=== PATIENT | female | born 1970 | race Caucasian/White ===

== ENCOUNTER 2021-09-17 09:52 | Outpatient (AMBR) | payer MEDICAID, SELFPAY ==
--- NOTE | 2021-09-02 09:26 | PT.OIERPT ---
PT OP Initial Eval Patient Information Visit Reasons: RIGHT HIP PAIN Medical Diagnosis: M25.551 Treatment Dx #1: R hip pain Start of Care: 09/02/21 Date of Onset: April 2021 Initial Assessment Subjective Pt is 51 yr old female who reports she was doing HH chores in April and felt a pop and felt pain in the R hip groin and lateral hip region that hasn't gone away since. She has long Hx of LBP. She got an injection in the R hip in June which has allowed her to walk and have much less pain. 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 Pt has painfree trunk ROM that doesn't affect hip pain and ssx don't seem to be referred from L/S. The pain is localized and she felt immediate relief of ssx with hip aspiration/injection into inguinal region that continues until the present. PT recommends further imaging of the R hip joint if ssx don't improve. Pt requires skilled therapy in order to decrease pain and improve ROM and has fair rehab potential. Short Term and Pocket Setter Goals 1. Ind with HEP 2. Improved R SLR to at least 50 deg 3. Improved hip IR to at least 12 deg 4. Pt will ambulate her normal distances with symmetrical pattern not limited by hip pain Treatment Plan 1. Manual therapy 2. Therex 3. Modalities as indicated, moist heat, ice, estim ? Frequency and Duration 2x a week for 6 weeks Certification Dates: 09/02/21 to 12/01/21 Office Procedures PT Treatments PT Date of Service: 09/02/21 OP PT Eval Mod Complex 30 minutes: Yes
--- NOTE | 2021-09-08 14:31 | PT.ODAYNRPT ---
PT Outpatient Daily Note Date of Service: 09/08/21 OP Daily Note Visit Reasons: RIGHT HIP PAIN Outpatient Physical Therapy Treatment Date: 09/08/21 Subjective: Same as time of evaluation Objective: See F/S for therex Assessment: Moderate tissue irritability of R hip with therex today on total gym and with step ups. Plan: Continue per POC Office Procedures PT Treatments PT Date of Service: 09/08/21 Therapeutic Exercise 30 minutes: Yes PT Treatments PT Date of Service: 09/02/21 OP PT Eval Mod Complex 30 minutes: Yes
--- NOTE | 2021-09-11 16:38 | PT.ODAYNRPT ---
PT Outpatient Daily Note Date of Service: 09/11/2021 OP Daily Note Visit Reasons: RIGHT HIP PAIN Outpatient Physical Therapy Treatment Date: 09/11/21 Subjective: pt has hip pain upon visit, Objective: see flow sheet. Assessment: noted pt has antalgic gait due to her R hip pain. pt has difficulty with side steps due to pain but she did better with the monster walks. both exercises with no resistance. she completed all exercises with discomfort. added hot pack while she is on sidelying to her R hip post ther ex. Plan: continue POC per PT. Length of Time (minutes) of Treatment: 30 Minutes Office Procedures PT Treatments PT Date of Service: 09/08/21 Therapeutic Exercise 30 minutes: Yes PT Treatments PT Date of Service: 09/02/21 OP PT Eval Mod Complex 30 minutes: Yes PT Treatments PT Date of Service: 09/11/21 Therapeutic Exercise 30 minutes: Yes
--- NOTE | 2021-09-14 15:10 | PT.ODAYNRPT ---
PT Outpatient Daily Note Date of Service: 09/14/21 OP Daily Note Visit Reasons: RIGHT HIP PAIN Outpatient Physical Therapy Treatment Date: 09/14/21 Subjective: Pt reports she had a shot for her pain so she feels some pressure to R hip. Objective: See flow chart for therex. Assessment: Pt tolerated therex fair w/ complaints of pain but she wants to push through the pain. Performed stretches to R hip to help decrease pain and improve ROM. TTP inferior to R hip greater trochanter. Muscle tension to IT band. Pt feels a lot of pain when palpating the area. Pt presents antalgic gait prior and end of session. Pt tolerated Post Ice pack well. Plan: Cont POC per PT. Length of Time (minutes) of Treatment: 30 Minutes Office Procedures PT Treatments PT Date of Service: 09/08/21 Therapeutic Exercise 30 minutes: Yes PT Treatments PT Date of Service: 09/14/21 Therapeutic Exercise 30 minutes: Yes PT Treatments PT Date of Service: 09/02/21 OP PT Eval Mod Complex 30 minutes: Yes PT Treatments PT Date of Service: 09/11/21 Therapeutic Exercise 30 minutes: Yes
--- NOTE | 2021-09-17 12:07 | PT.ODAYNRPT ---
PT Outpatient Daily Note Date of Service: 09/17/21 OP Daily Note Visit Reasons: RIGHT HIP PAIN Outpatient Physical Therapy Treatment Date: 09/17/21 Subjective: Pt reports R hip feeling better today and is motivated for therapy. Pt reports the stretches help her with mobility. Objective: See flow chart for therex. MT: STM w/ graston to IT band x 10mins. Assessment: Pt ambulated today w/ less antalgic gait from previous visit. Pt tolerated stretches well w/ minimal complaints of pain. Pt tolerated MT and post ice pack well w/ reduced pain. Minimal tissue irritability to IT band. Plan: Cont POC per PT. 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
== END 2021-09-20 23:59 | disposition home or self-care (01) ==
PROVIDERS: PCP Nurse Practitioner Family; Referring Provider Nurse Practitioner Family; Visit Provider Nurse Practitioner Family
DX: M25.551 Pain in right hip (principal); M54.50 Low back pain, unspecified; M47.817 Spondylosis without myelopathy or radiculopathy, lumbosacral region; F17.200 Nicotine dependence, unspecified, uncomplicated
CPT/HCPCS: 97110; 97140; 97162

== ENCOUNTER 2021-11-17 14:01 | Outpatient (AMBR) | payer MEDICAID, SELFPAY ==
--- NOTE | 2021-10-26 14:42 | PTNOTE_ITS ---
PT Outpatient Daily Note Date of Service: 10/26/21 OP Daily Note Visit Reasons: RIGHT HIP PAIN Outpatient Physical Therapy Treatment Date: 10/26/21 Subjective: Overall improved ROM in the R hip since starting therapy. Variable pain level but manual therapy hip distraction gives her pain relief for a couple hours. Objective: See F/S for therex MT: long axis hip distraction with strap x7' Assessment: Improved hip abduction AROM since starting therapy. Good response to hip distraction. Plan: Continue per POC Length of Time (minutes) of Treatment: 30 Minutes Office Procedures PT Treatments PT Date of Service: 10/26/21 Therapeutic Exercise 30 minutes: Yes
--- NOTE | 2021-10-28 18:09 | PT.ODAYNRPT ---
PT Outpatient Daily Note Date of Service: 10/28/21 OP Daily Note Visit Reasons: RIGHT HIP PAIN Outpatient Physical Therapy Treatment Date: 10/28/21 Subjective: Pt reports temporary relief after therapy visits.She has to leave 5 mins early from therapy today. Objective: See F/S for therex Assessment: Temporary relief of R hip pain after therapy visits. Difficulty with lateral stepping and hip abduction. Plan: Continue per POC Length of Time (minutes) of Treatment: 25 Minutes Office Procedures PT Treatments PT Date of Service: 10/28/21 Therapeutic Exercise 30 minutes: Yes
--- NOTE | 2021-11-02 15:35 | PT.ODAYNRPT ---
PT Outpatient Daily Note Date of Service: 11/02/2021 OP Daily Note Visit Reasons: RIGHT HIP PAIN Outpatient Physical Therapy Treatment Date: 11/02/21 Subjective: pt came in with no pain of the hip upon visit. Objective: see flow sheet. Assessment: noted pt was touching her R hip during ther ex due to the exercise causing muscle fatigue. for lunges on step she does alternate BLE so one can be stretched and other is being active. the side steps exercise seems to the one to be bothering her hip but she still completed the laps. chair at reach for resting if needed. Plan: continue POC per PT. Length of Time (minutes) of Treatment: 30 Minutes Office Procedures PT Treatments PT Date of Service: 10/28/21 Therapeutic Exercise 30 minutes: Yes
--- NOTE | 2021-11-04 14:57 | PT.ODAYNRPT ---
PT Outpatient Daily Note Date of Service: 11/04/21 OP Daily Note Visit Reasons: RIGHT HIP PAIN Outpatient Physical Therapy Treatment Date: 11/04/21 Subjective: Pt reports temporary relief after therapy visits and improved ROM into abduction. Objective: See F/S for therex Assessment: Temporary relief of R hip pain after therapy visits. Difficulty with lateral stepping and hip abduction. Plan: Continue per POC Length of Time (minutes) of Treatment: 30 Minutes Office Procedures PT Treatments PT Date of Service: 10/28/21 Therapeutic Exercise 30 minutes: Yes PT Treatments PT Date of Service: 11/02/21 Therapeutic Exercise 30 minutes: Yes PT Treatments PT Date of Service: 11/04/21 Therapeutic Exercise 30 minutes: Yes
--- NOTE | 2021-11-17 14:54 | PTNOTE_ITS ---
PT OP Progress/Discharge Note Date of Service: 11/17/21 Progress Note/DC Note Progress Note/Discharge Note: DC Note Patient Information Visit Reasons: RIGHT HIP PAIN Service Continue Service or Discharge: Discharge Discharge Date: 11/17/21 Status Subjective: Pt reports temporary relief after therapy visits and improved ROM into abduction. 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 Objective: R hip AROM: Flexion: 95 deg Abd: 40 deg SLR: 40 deg IRot: 10 deg with pain Strength: Flexion: 4-/5 with hip joint pain Assessment: Pt has attended 11/01 Rx visits with temporary relief of R hip pain after therapy visits and improved R hip abduction AROM. Pt has continued pain into IR and Erot at end range consistent with degenerative changes. Pt has difficulty with lateral stepping and hip abduction. Progress with goals has plateaued. Plan: D/C with HEP. Office Procedures PT Treatments PT Date of Service: 10/28/21 Therapeutic Exercise 30 minutes: Yes PT Treatments PT Date of Service: 11/02/21 Therapeutic Exercise 30 minutes: Yes PT Treatments PT Date of Service: 11/04/21 Therapeutic Exercise 30 minutes: Yes PT Treatments PT Date of Service: 11/17/21 Therapeutic Exercise 30 minutes: Yes
== END 2021-11-20 23:59 | disposition home or self-care (01) ==
PROVIDERS: PCP Orthopaedic Surgery; Referring Provider Orthopaedic Surgery; Visit Provider Orthopaedic Surgery
DX: M51.36 Other intervertebral disc degeneration, lumbar region (principal); M25.551 Pain in right hip
CPT/HCPCS: 97110

== ENCOUNTER 2024-10-11 11:36 | Emergency (ER) | payer MEDICAID, SELFPAY ==
--- NOTE | 2024-10-11 11:52 | EKG_ITS ---
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
[2024-10-11 11:55] VITALS: BP 136/81; PULSE 59; RESP 17; TEMP 36.4; O2SAT 99; BMI 34.6
--- NOTE | 2024-10-11 11:55 | XR_ITS ---
Examination: CT brain head without contrast. 2-D sagittal coronal reconstructions Date and time of exam:October 11, 2024 1212 hours INDICATIONS: Dizziness episodes beginning 2 days ago, history CVA posterior right temporal parietal lobe COMPARISON: September 13, 2018 CTDI: vol (mGy):20.2 DLP: (mGycm):1001 Technique: Multiple CT axial sections of the brain have been obtained, 5 mm slice thickness. Contrast has not been administered. 2-D sagittal, coronal reconstructions have been obtained Low dose protocols were performed. One or more of the following dose reduction techniques were used; automated exposure control, adjustment of the mA and/or KV according to patient size, use of iterative reconstruction technique. Findings: No significant ventricular enlargement. Encephalomalacia posterior right temporal parietal lobe Intra-axial or extra-axial hemorrhage density is not seen. No mass effect or midline shift Basal cisterns are not remarkable. Fourth ventricle is midline. Cranial vault intact. Impression: Negative for acute hemorrhage, mass effect or midline shift Advise clinical correlation follow-up accordingly
--- NOTE | 2024-10-11 11:55 | XR_ITS ---
Examination: PA lateral chest 2 views TECHNIQUE: Upright PA lateral chest 2 views Exam date and time: October 11, 2024 1305 hours Comparison June 14, 2024 INDICATIONS: Onset chest pain today. FINDINGS: Normal heart size. Lungs are clear. The osseous structures are intact IMPRESSION: No active disease
--- NOTE | 2024-10-11 11:57 | PD.EDRME ---
Rapid Medical Screening Exam RME Arrival date/time: 10/11/24 11:36 54-year-old female presents emergency department today saying she feels lightheaded Chief Complaint: Dizziness Time Seen by Provider: 10/11/24 11:48 Vital signs: Vital Signs Temperature 97.6 F 10/11/24 11:55 Pulse Rate 59 L 10/11/24 11:55 Respiratory Rate 17 10/11/24 11:55 Blood Pressure 136/81 H 10/11/24 11:55 Pulse Oximetry (%) 99 10/11/24 11:55 Oxygen Delivery Method Room Air 10/11/24 11:55
[2024-10-11 12:08] LABS: Collection Type, Urine Clean Catch
[2024-10-11 12:22] LABS: HCG Qualitative,Urine Negative
[2024-10-11 12:25] LABS: Bacteria,Urine 4+; Bilirubin,Urine Negative (Negative); Blood,Urine Negative (Negative); Clarity,Urine Clear (Clear/Hazy); Color,Urine Colorless (Lt Yel-Yel); Glucose, Urine Negative (Negative); Ketones,Urine Negative (Negative); Leukocyte Esterase,Urine Negative (Negative); Nitrite,Urine Negative (Negative); PH,Urine 6.5 (5.0-7.0); Protein,Urine Negative (Neg - Trace); RBC,Urine < 1 /hpf (0-3); Specific Gravity,Urine 1.005 (1.001-1.035); Squamous Epithelial Cell,Urine 3 /hpf (0-5); Urobilinogen,Urine Negative mg/dL (0.0-1.0); WBC,Urine < 1 /hpf (0-5)
[2024-10-11 12:28] LABS: Amphetamine/Methamp Scrn,U Negative (Negative); Barbiturate Screen,Urine Negative (Negative); Benzodiazepines Screen,Urine Negative (Negative); Benzoylecgonine Screen, Ur Negative (Negative); Fentanyl Screen,Urine Negative (Negative); Opiate Screen,Urine Negative (Negative); THC Screen,Urine Negative (Negative)
[2024-10-11 12:38] LABS: Basophils # (Auto) 0.1 Thou/mm3 (0.0-0.2); Basophils % (Auto) 1 % (0-2.5); Eosinophils # (Auto) 0.2 Thou/mm3 (0.0-0.5); Eosinophils % (Auto) 2 % (0-10); Hematocrit 44.6 % (36.0-46.0); Hemoglobin 14.9 g/dL (12.0-16.0); Immature Granulocytes % (Auto) 0 % (0-0); Immature Granulocytes Auto 0.02 Thou/mm3 (0.00-0.00); Lymphocytes # (Auto) 2.4 Thou/mm3 (1.0-4.8); Lymphocytes % (Auto) 25 % (10-50); Mean Corpuscular HGB Conc 33.4 g/dl (31.0-37.0); Mean Corpuscular Hemoglobin 30.8 pg (25.0-35.0); Mean Corpuscular Volume 92 fL (80-100); Monocytes # (Auto) 0.4 Thou/mm3 (0.0-0.8); Monocytes % (Auto) 5 % (0-12); Neutrophils # (Auto) 6.4 Thou/mm3 (1.8-7.7); Neutrophils % (Auto) 67 % (37-80); Nucleated Red Blood Cell % 0 /100 WBC (0); Platelet Count 224 Thou/mm3 (140-440); RDW Standard Deviation 42.6 fL (36.4-46.3); Red Blood Count 4.83 Miln/mm3 (4.00-5.20); White Blood Count 9.6 Thou/mm3 (3.6-11.0)
[2024-10-11 12:53] LABS: Partial Thromboplastin Time 25.1 Seconds (22.0-36.0); Prothrombin Time 10.7 Seconds (9.0-12.2)
[2024-10-11 12:55] LABS: B-Type Natriuretic Peptide 70 pg/mL (0-100)
[2024-10-11 12:57] LABS: Alanine Aminotransferase 13 U/L (10-49); Albumin, Serum 4.5 gm/dL (3.5-5.0); Alkaline Phosphatase 64 U/L (46-116); Anion Gap 3 (7-16); Aspartate Amino Transferase 13 U/L (0-34); BUN/Creatinine Ratio 16 Ratio (12-20); Bilirubin,Total 0.5 mg/dL (0.3-1.2); Blood Urea Nitrogen 14 mg/dL (9-23); Calcium 10.1 mg/dL (8.3-10.6); Calcium (Corrected) 10.1 mg/dL (8.5-10.1); Carbon Dioxide 28.6 mMol/L (20.0-31.0); Chloride 109 mMol/L (98-107); Creatinine (Component) 0.9 mg/dL (0.6-1.3); Estimated Creatinine Clearance 88.9 mL/min (>60); Globulin 2.3 gm/dL (2.3-3.5); Glucose 138 mg/dL (74-106); Magnesium 1.9 mg/dL (1.6-2.6); Osmolality,Calculated 283 (275-295); Potassium 4.7 mMol/L (3.4-5.1); Sodium 141 mMol/L (136-145); Total Protein 6.8 gm/dL (5.7-8.2); Troponin I < 0.020 ng/mL (0.0-0.045); eGFR > 60 See Note
[2024-10-11 13:09] VITALS: BP 158/68; PULSE 52; RESP 16; TEMP 36.4; O2SAT 97
--- NOTE | 2024-10-11 13:20 | PC.NURSE ---
Pt coming in from ED lobby with c/o dizziness x2 days; pt states, I feel like I'm drunk; the world is spinning. I just woke up with it when it happened 2 days ago. Pt connected to monitor at this time.
[2024-10-11 13:26] VITALS: PULSE 55
--- NOTE | 2024-10-11 13:36 | PD.EDDIZZY ---
ED Dizzyness RME/HPI General Chief Complaint: Dizziness Stated Complaint: Dizzy X 2 days Time Seen by Provider: 10/11/24 11:48 Arrival date/time: 10/11/24 11:36 RME / HPI RME / HPI Narrative: 54-year-old female patient with significant history of CVA in the past, currently on Plavix, and aspirin was brought in by family for evaluation regarding lightheadedness and dizziness. Onset of symptoms for the last 2 days, severity of symptoms mild. Patient denies any headache. Denies any chest pain denies any neck pain. Patient is ambulatory unaided. Denies any fever denies any trauma or fall. No medication was taken prior travel. Related Data Home Medications ?Medication ?Instructions ?Recorded ?Confirmed clopidogrel 75 mg tablet (Plavix) 75 mg PO QDAY #0 tabs 07/31/14 05/19/20 ranitidine HCl 150 mg tablet 1 tab PO BID ##60 08/06/17 05/19/20 simvastatin 20 mg tablet 1 tab PO QDAY ##30 08/06/17 05/19/20 aspirin 81 mg tablet,delayed 81 mg PO QDAY 03/29/18 05/19/20 release (Aspir-) Previous Rx's ?Medication ?Instructions ?Recorded albuterol sulfate 90 mcg/actuation 2 puff inhalation QID PRN 05/19/20 aerosol inhaler shortness of breath or wheezing #18 grams cetirizine 10 mg tablet (Zyrtec) 10 mg PO QDAY #30 tabs 05/19/20 sodium chloride 0.65 % nasal spray 2 spray intranasal QID #60 mL 05/19/20 aerosol (Saline Nasal) famotidine 40 mg tablet (Pepcid) 40 mg PO QDAY #30 tabs 06/23/24 hydrocodone 5 mg-acetaminophen 325 1 tab PO Q6H PRN pain #10 tabs 06/23/24 mg tablet ondansetron 4 mg disintegrating 4 mg PO Q6H PRN nausea and 06/23/24 tablet vomiting #10 tabs meclizine 25 mg tablet 25 mg PO BID PRN dizziness #20 tabs 10/11/24 Allergies Allergy/AdvReac Type Severity Reaction Status Date / Time No Known Allergies Allergy Verified 05/18/20 22:59 Review of Systems Review of Systems Narrative Review of Systems: Review of system reviewed and within normal limits except mentioned in HPI ED Exam Narrative Physical exam: VITAL SIGNS: Reviewed. GENERAL APPEARANCE: Alert and interactive, follows commands, no acute distress, HEAD AND FACE: Non-traumatic. ENT: PERRL, pink conjunctivitis, eyelid no trauma, Mucous membrane moist. NECK: Supple, nontender, no nuchal rigidity. CHEST: No tenderness, no crepitus, no paradoxical movement, no retractions. LUNGS: Clear, well ventilated, symmetric, no rales, no wheezing, no ronchi, no stridor, good breath sounds bilaterally. HEART: Regular rate, regular rhythm, no murmur, no gallops. ABDOMEN: Soft, positive bowel sounds, nondistended, no guarding, nontender, no rebound, no masses, RECTAL: Deferred. GENITAL: Deferred. NEUROLOGICAL: Gross motor function intact sensory function intact, Appropriate for age. MUSCULOSKELETAL: low back nontender, full range of motion. EXTREMITIES: Nontender, full range of motion. SKIN: Color pink, dry, no rash, no lacerations, no abrasions, no contusions. LYMPHATICS: Deferred. Course Quality Measures none Orders Category Date Time Status EKG (ED ONLY) *Do not use* NOW Care 10/11/24 11:[address] head/brain wo con Stat Exams 10/11/24 11:55 Completed EKG (ED Only) Stat Exams 10/11/24 11:52 Draft XR chest 2V Stat Exams 10/11/24 11:55 Taken B-Type Natriuretic Peptide Stat Lab 10/11/24 12:29 Completed CBC Stat Lab 10/11/24 12:29 Completed Comprehensive Metabolic Panel Stat Lab 10/11/24 12:29 Completed Drug Screen,Urine Stat Lab 10/11/24 12:03 Completed HCG Qualitative,Urine Stat Lab 10/11/24 12:03 Completed Magnesium Stat Lab 10/11/24 12:29 Completed Partial Thromboplastin Time Stat Lab 10/11/24 12:29 Completed Prothrombin Time with INR Stat Lab 10/11/24 12:29 Completed Troponin I Stat Lab 10/11/24 12:29 Completed Urinalysis Stat Lab 10/11/24 12:03 Completed Meclizine HCl [Antivert] Med 10/11/24 13:36 Once 50 mg PO X1 ONE Vital Signs Vital signs: Vital Signs Temperature 97.6 F 10/11/24 11:55 Pulse Rate 59 L 10/11/24 11:55 Respiratory Rate 17 10/11/24 11:55 Blood Pressure 136/81 H 10/11/24 11:55 Pulse Oximetry (%) 99 10/11/24 11:55 Oxygen Delivery Method Room Air 10/11/24 11:55 Dizziness MDM Narrative MDM Narrative:: 54-year-old female patient with significant history of CVA in the past, currently on Plavix, and aspirin was brought in by family for evaluation regarding lightheadedness and dizziness. Onset of symptoms for the last 2 days, severity of symptoms mild. Patient denies any headache. Denies any chest pain denies any neck pain. Patient is ambulatory unaided. Denies any fever denies any trauma or fall. No medication was taken prior travel. Patient's workup today all came back unremarkable including normal CT scan of the head. Patient was given meclizine with significant improvement of symptoms. Results discussed with the patient. Patient was noted to be ambulatory unaided Patient data External records reviewed:: None Clinical information provided by:: none Social determinants that could affect healthcare access:: none Patient has the following chronic illnesses:: History of CVA in the past, How is presenting disease/condition affected by chronic disease/condition?: uneffected by Evaluation data The following diagnostics were reviewed and interpreted by me:: lab results, radiology exam(s) and EKG tracing(s) Lab and/or radiology exams considered but not ordered:: None Interpretation Summary: EKG as interpreted by me showed sinus bradycardia, ventricular rate 51 bpm, no ST segment elevation or depression noted. Laboratory workup all came back unremarkable urinalysis no UTI. CT scan of the head came back unremarkable. Medications / Prescriptions Medications or Prescriptions considered but not ordered:: None Medication administrations:: meclizine Consultations Consultation(s) initiated? (list below): No Diagnosis Dizziness Differential Diagnosis: benign paroxysmal positional vertigo, cerebrovascular accident and other (Dizziness) Most likely diagnosis given after review of the tests above:: Dizziness Admission Indicated Admission indicated?: not indicated Admission Request Was there a request for admission?: No Disposition Plan Disposition Plan: Discharge Discharge Attestation Discharge Attestation: The patient was given an opportunity to ask questions and understood the discharge instructions. Discharge instructions specifically effects, indications for sooner follow up or return to the emergency department, and the expected course of current diagnosis. Patient condition: Stable Discharge Plan Plan Patient Disposition: HOME (Self Care) Disposition Comment: Stable Prescriptions/Referrals Prescriptions/Med Rec: New meclizine 25 mg tablet 25 mg PO BID PRN (Reason: dizziness) Qty: 20 0RF No Action clopidogrel [Plavix] 75 MG tablet 75 mg PO QDAY Qty: 0 simvastatin 20 MG tablet 1 tab PO QDAY Qty: 30 ranitidine HCl 150 MG tablet 1 tab PO BID Qty: 60 aspirin [Aspir-81] 81 mg Tablet,Delayed Release (Dr/Ec) 81 mg PO QDAY albuterol sulfate 90 mcg/actuation HFA aerosol inhaler 2 puff IH QID PRN (Reason: shortness of breath or wheezing) Qty: 18 0RF cetirizine [Zyrtec] 10 mg tablet 10 mg PO QDAY Qty: 30 0RF sodium chloride [Saline Nasal] 0.65 % aerosol,spray 2 spray INTRANASAL QID Qty: 60 0RF famotidine [Pepcid] 40 mg tablet 40 mg PO QDAY Qty: 30 0RF ondansetron 4 mg tablet,disintegrating 4 mg PO Q6H PRN (Reason: nausea and vomiting) Qty: 10 0RF hydrocodone-acetaminophen 5-325 mg tablet 1 tab PO Q6H MDD 3 PRN (Reason: pain) Qty: 10 0RF Referrals: Apurva Barnett FNP [Primary Care Provider] - In 1 week Problem List Clinical Impression: Dizziness Patient/Caregiver Discharge Instructions Discharge Activity: activity as tolerated Education Materials: Dizziness Fainting Poss Causes Additional Instructions: Thank you for the opportunity for serving you today. You are stable for discharged . You are advised to: Follow-up with your PCP in 1 to 2 days Return to ED for worsening of symptoms Increase oral fluids Take medication as prescribed Print Language: Greek Stand Alone Forms: Anu Award Info., Patient Portal Info Letter KALYAN/TAMI Supervising Physician KALYAN/TAMI Supervising Physician: MD Deyanira
[2024-10-11] MEDS: MECLIZINE HCL 25 MG TABLET 50 MG PO (13:38)
[2024-10-11 13:39] VITALS: BP 145/77; PULSE 62; RESP 20; TEMP 36.4; O2SAT 99
== END 2024-10-11 13:55 | disposition home or self-care (01) ==
PROVIDERS: Nurse Practitioner Primary Care; Emergency Provider Emergency Medicine; PCP Registered Nurse Community Health
DX: R42 Dizziness and giddiness (principal); R07.9 Chest pain, unspecified; R00.1 Bradycardia, unspecified
CPT/HCPCS: 36415; 70450; 71046; 80053; 80307; 81001; 81025; 83735; 83880; 84484; 85025; 85610; 85730; 93005; 99284; A9270

== ENCOUNTER → 2025-07-26 | Outpatient (CLI) | payer MEDICAID, SELFPAY ==
--- NOTE | 2025-07-26 11:15 | XR_ITS ---
Examination: Screening digital mammography, bilateral Computer aided detection 3-D breast Tomosynthesis, bilateral Date and time of exam: July 26, 2025 1133 hours, compared to mammograms dating to February 13, 2021 Indication: Screening Technique: Nonmagnified MLO, CC views of the breasts to been obtained, reconstructed from 3-D Tomosynthesis images. R2 computer aided detection program utilized for evaluation of suspicious masses and/or abnormal calcifications. 3-D Tomosynthesis images obtained. Findings: Scattered areas of fibroglandular density. Benign calcifications. No interval suspicious masses Impression: BI-RADS category II: Benign Findings. Recommend 1 year follow-up mammogram.
== END | disposition home or self-care (01) ==
LOC: CDIM 11:09
PROVIDERS: Referring Provider Registered Nurse Community Health; Visit Provider Registered Nurse Community Health
DX: Z12.31 Encounter for screening mammogram for malignant neoplasm of breast (principal); R92.323 Mammographic fibroglandular density, bilateral breasts; R92.1 Mammographic calcification found on diagnostic imaging of breast
CPT/HCPCS: 77063; 77067